=== PATIENT | female | born 1955 | race American Indian/Alaskan Native ===

== ENCOUNTER 2021-05-21 17:22 | Emergency (ER) | payer MEDICARE ==
[2021-05-21] MEDS ORDERED: ACETAMINOPHEN 325 MG TAB PO ONE (18:36)
[2021-05-21] MEDS ORDERED: ACETAMINOPHEN 325 MG TAB ONE (18:37)
--- NOTE | 2021-05-21 18:48 | Event Note ---
ED Screening Note Date of service: 05/21/21 Time: 18:47 ED Screening Note: 65-year-old female patient presents to the emergency department with complaints of fatigue, cough, and decreased appetite for 2 days. Patient states she recently returned from [place]. Patient did not receive her COVID-19 vaccination series. No current steroid or antibiotic use. Took Mucinex with limited relief. Febrile and tachycardic in triage. General: Awake, appropriately interactive, no acute distress. Neck: Supple. Full range of motion intact. Cardiovascular: Normal peripheral perfusion. Pulmonary: No respiratory distress. Patient is speaking normally without use of accessory muscles. Skin: No apparent rashes or lesions. Neurological: No facial asymmetry. Speech is clear. Follows commands. Patient is alert and oriented. Musculoskeletal: Moves all four extremities spontaneously with normal range of motion. Psych: Cooperative. Appropriate mood and affect. Sepsis order set + antipyretics initiated in triage. I have greeted and performed a focused rapid initial assessment of this patient. A comprehensive ED assessment and evaluation of the patient, analysis of all test results, and completion of the medical decision-making process will be conducted by additional ED providers. This initial assessment/diagnostic orders/clinical plan/treatment(s) is/are subject to change based on patients health status, clinical progression and re-assessment. Further treatment and workup at subsequent clinical provider's discretion. Patient/guardian urged not to elope from the ED as their condition may be serious if not clinically assessed and managed.
--- NOTE | 2021-05-21 19:19 | XRay Report ---
CHEST 2 VIEWS INDICATION / CLINICAL INFORMATION: fever cough - covid. COMPARISON: None available. FINDINGS: SUPPORT DEVICES: None. HEART / MEDIASTINUM: No significant abnormality. LUNGS / PLEURA: Mild bibasilar streaky parenchymal disease characteristic for mild bilateral Covid pn eum[place] No pneumothorax. ADDITIONAL FINDINGS: No significant additional findings. IMPRESSION: 1. Mild bilateral lower lobe Covid pneumonia Signer Name: Pedro Galvez MD Signed: 05/21/2021 7:14 PM Workstation Name: [id number]
[2021-05-21 19:57] LABS: Basophils # (Auto) 0.1 K/mm3 (0.0-0.1); Basophils % (Auto) 1.5 % (0.0-1.8); Hematocrit 35.1 % (30.3-42.9); Hemoglobin 11.6 gm/dl (10.1-14.3); Lymphocytes # (Auto) 0.8 K/mm3 (1.2-5.4); Lymphocytes % (Auto) 12.9 % (13.4-35.0); Mean Corpuscular HGB Conc 33 % (30-34); Mean Corpuscular Volume 82 fl (79-97); Monocytes # (Auto) 0.3 K/mm3 (0.0-0.8); Monocytes % (Auto) 4.8 % (0.0-7.3); Platelet Count 220 K/mm3 (140-440); Red Blood Count 4.26 M/mm3 (3.65-5.03); Red Cell Distribution Width 14.8 % (13.2-15.2)
[2021-05-21 20:10] LABS: Albumin 3.7 g/dL (3.9-5); Calcium 8.7 mg/dL (8.4-10.2)
--- NOTE | 2021-05-22 02:14 | Emergency Department Report ---
- General Chief Complaint: Weakness Stated Complaint: FATIQUE/NO APPETITE Source: patient Mode of arrival: Ambulatory Limitations: No Limitations - History of Present Illness Initial Comments: Patient is a 65-year-old -Thai female with a history of hypertension who presents to the ED with complaint of acute onset persistent nasal and sinus congestion, frontal sinus pressure, persistent dry cough, intermittent fever and chills with diffuse body aches and pains and lack of appetite for the last 5 days, worse in the last 2 days. Patient also complains of generalized weakness and fatigue. Patient states that no one else at home has had similar symptoms. Patient denies dizziness, nausea and vomiting or diarrhea, dysuria, urinary frequency and urgency, chest pain or shortness of breath, abdominal pain, sore throat, change in vision or syncope. MD Complaint: cough, rhinorrhea, nasal congestion, sinus pain -: Sudden, days(s) (5) Severity: moderate Severity scale (0 -10): 6 Quality: sharp, aching Consistency: constant Improves With: nothing Worsens With: nothing Associated Symptoms: denies other symptoms, myalgias, headache, rhinorrhea, nasal congestion, cough. denies: fever, chills, chest pain, shortness of breath, abdominal pain, nausea, vomiting, diarrhea, dysuria, rash, confusion, weight loss, epistaxis, hoarseness, ear pain Treatments Prior to Arrival: "cold medicine" - Related Data Previous Rx's Medication Instructions Recorded Last Taken Type Acetaminophen [Tylenol] 500 mg PO Q6HR PRN #30 tablet 05/22/21 Unknown Rx Ascorbic Acid [Vitamin C] 1,000 mg PO Q12H #40 tablet 05/22/21 Unknown Rx Azithromycin [Zithromax Z-JUAN] 250 mg PO DAILY #6 tablet 05/22/21 Unknown Rx Benzonatate [Tessalon Perles] 100 mg PO Q8HR #30 capsule 05/22/21 Unknown Rx Cetirizine HCl [Zyrtec 10mg tab] 10 mg PO DAILY #30 tablet 05/22/21 Unknown Rx Allergies Allergy/AdvReac Type Severity Reaction Status Date / Time penicillin G Allergy Hives Verified 05/21/21 18:31 [From Bicillin C-R] penicillin G procaine Allergy Hives Verified 05/21/21 18:31 [From Bicillin C-R] ED Review of Systems ROS: Stated complaint: FATIQUE/NO APPETITE Other details as noted in HPI Constitutional: malaise. denies: chills, fever Eyes: denies: eye pain, eye discharge, vision change ENT: congestion, other (frontal sinus pressure). denies: ear pain, throat pain Respiratory: denies: cough, shortness of breath, wheezing Cardiovascular: denies: chest pain, palpitations Endocrine: no symptoms reported Gastrointestinal: denies: abdominal pain, nausea, vomiting, diarrhea Genitourinary: denies: urgency, dysuria, discharge Musculoskeletal: denies: back pain, joint swelling, arthralgia Skin: denies: rash, lesions Neurological: headache. denies: weakness, paresthesias Psychiatric: denies: anxiety, depression Hematological/Lymphatic: denies: easy bleeding, easy bruising ED Past Medical Hx - Past Medical History Previous Medical History?: Yes - Surgical History Hx Cholecystectomy: Yes Additional Surgical History: HERNIA - Social History Smoking Status: Never Smoker Substance Use Type: None - Medications Home Medications: Home Medications Medication Instructions Recorded Confirmed Last Taken Type Acetaminophen [Tylenol] 500 mg PO Q6HR PRN #30 tablet 05/22/21 Unknown Rx Ascorbic Acid [Vitamin C] 1,000 mg PO Q12H #40 tablet 05/22/21 Unknown Rx Azithromycin [Zithromax Z-JUAN] 250 mg PO DAILY #6 tablet 05/22/21 Unknown Rx Benzonatate [Tessalon Perles] 100 mg PO Q8HR #30 capsule 05/22/21 Unknown Rx Cetirizine HCl [Zyrtec 10mg tab] 10 mg PO DAILY #30 tablet 05/22/21 Unknown Rx ED Physical Exam - General Limitations: No Limitations General appearance: alert, in no apparent distress - Head Head exam: Present: atraumatic, normocephalic, normal inspection - Eye Eye exam: Present: normal appearance, PERRL, EOMI Pupils: Present: normal accommodation - ENT ENT exam: Present: mucous membranes moist, TM's normal bilaterally, normal external ear exam, other (Grossly congested nasal passages; palpable frontal and maxillary sinus tenderness) - Neck Neck exam: Present: normal inspection, full ROM - Respiratory Respiratory exam: Present: normal lung sounds bilaterally. Absent: respiratory distress, wheezes, rales, rhonchi, stridor, chest wall tenderness, accessory muscle use, decreased breath sounds, prolonged expiratory - Cardiovascular Cardiovascular Exam: Present: normal rhythm, tachycardia, normal heart sounds. Absent: systolic murmur, diastolic murmur, rubs, gallop - GI/Abdominal GI/Abdominal exam: Present: soft, normal bowel sounds. Absent: tenderness, guarding, rebound, hyperactive bowel sounds, hypoactive bowel sounds, organomegaly - Extremities Exam Extremities exam: Present: normal inspection, full ROM, normal capillary refill - Back Exam Back exam: Present: normal inspection, full ROM. Absent: tenderness, CVA tenderness (R), CVA tenderness (L), muscle spasm, paraspinal tenderness, vertebral tenderness - Neurological Exam Neurological exam: Present: alert, oriented X3, CN II-XII intact, normal gait, reflexes normal - Psychiatric Psychiatric exam: Present: normal affect, normal mood - Skin Skin exam: Present: warm, dry, intact, normal color. Absent: rash ED Course Vital Signs 05/21/21 05/22/21 18:35 01:48 Temperature 101.8 F H 100.0 F H Pulse Rate 107 H 100 H Respiratory 20 18 Rate Blood Pressure 114/64 122/77 O2 Sat by Pulse 100 98 Oximetry ED Medical Decision Making - Lab Data Result diagrams: 05/21/21 18:57 05/21/21 18:57 - Radiology Data Radiology results: report reviewed, image reviewed [address] [address] XRay Report Signed Patient: FER BEE MR#: [id number] : 1955 Acct:[id number] Age/Sex: 65 / F ADM Date: 05/21/21 Loc: ED Attending Dr: Ordering Physician: JERROD AMES Date of Service: 05/21/21 Procedure(s): XR chest routine 2V Accession Number(s): [id number] cc: JERROD AMES Fluoro Time In Minutes: CHEST 2 VIEWS INDICATION / CLINICAL INFORMATION: fever cough - covid. COMPARISON: None available. FINDINGS: SUPPORT DEVICES: None. HEART / MEDIASTINUM: No significant abnormality. LUNGS / PLEURA: Mild bibasilar streaky parenchymal disease characteristic for mild bilateral Covid pneumonia No pneumothorax. ADDITIONAL FINDINGS: No significant additional findings. IMPRESSION: 1. Mild bilateral lower lobe Covid pneumonia Signer Name: Pedro Galvez MD Signed: 05/21/2021 7:14 PM Workstation Name: [id number] Transcribed By: TL Dictated By: Pedro Galvez MD Electronically Authenticated By: Pedro Galvez MD Signed Date/Time: 05/21/211913 DD/ 13 TD/TT: - Medical Decision Making This is a 65-year-old -Thai female with a history of hypertension who presents to the ED with complaint of acute onset persistent nasal and sinus congestion, frontal sinus pressure, persistent dry cough, intermittent fever and chills with diffuse body aches and pains and lack of appetite for the last 5 days, worse in the last 2 days. Patient also complains of generalized weakness and fatigue. Patient states that no one else at home has had similar symptoms. In the ED, patient is alert and oriented x3 and is not in any distress but tachycardic and febrile in triage. Patient was treated in the ED for fever, and lab test results were reviewed and are all nonactionable. Chest x-ray shows mild bilateral lower lobe Covid pneumonia. On reevaluation, patient's fever resolved with medications and tachycardia also resolved. Patient was therefore discharged home on medications and advised to self quarantine at home for 10 days while taking medications, and drinking plenty of fluids. Patient was also advised to return to ED immediately if symptoms get worse, otherwise follow-up with her primary care physician after the self quarantine. - Differential Diagnosis Covid pneumonia; URI; Sinusitis; Bronchitis; Pneumonia Critical care attestation.: If time is entered above; I have spent that time in minutes in the direct care of this critically ill patient, excluding procedure time. ED Disposition Clinical Impression: Pneumonia due to 2019 novel coronavirus, Fever and chills, Acute upper respiratory infection, Acute bronchitis due to COVID-19 virus Disposition: 01 HOME / SELF CARE / HOMELESS Is pt being admited?: No Does the pt Need Aspirin: No Condition: Stable Instructions: COVID-19 Frequently Asked Questions, Cough, Adult, [id number], Acute Bronchitis, Adult, [id number], Upper Respiratory Infection, Adult, [id number], COVID-19: How to Protect Yourself and Others - CDC, Fever, Adult, [id number], Acute Bronchitis (ED), Bacterial Pneumonia (ED) Additional Instructions: All lab test results were reviewed and are all nonactionable. Chest x-ray showed mild bilateral lower lobe Covid pneumonia. Therefore take medications with food, drink plenty of fluids, self quarantine at home for 10 days while taking these medications. Return to the ED immediately if symptoms get worse. Prescriptions: Acetaminophen [Tylenol] 500 mg PO Q6HR PRN #30 tablet PRN Reason: Pain , Severe (7-10) Benzonatate [Tessalon Perles] 100 mg PO Q8HR #30 capsule Ascorbic Acid [Vitamin C] 1,000 mg PO Q12H #40 tablet Azithromycin [Zithromax Z-JUAN] 250 mg PO DAILY #6 tablet Cetirizine HCl [Zyrtec 10mg tab] 10 mg PO DAILY #30 tablet Referrals: [facility] [Provider Group] - 3-5 Days Time of Disposition: 02:17 Print Language: MALTESE
[2021-05-22 02:22] VITALS: BP 122/77
== END 2021-05-22 03:53 | disposition home or self-care (01) ==
LOC: ED 17:22
DX: U07.1 COVID-19 (principal); J12.89 Other viral pneumonia; J20.8 Acute bronchitis due to other specified organisms; J06.9 Acute upper respiratory infection, unspecified; R50.9 Fever, unspecified; R52 Pain, unspecified; Z98.890 Other specified postprocedural states; Z88.0 Allergy status to penicillin
CPT/HCPCS: 36415; 71046; 80053; 82140; 83735; 85025; 99283